=== PATIENT | male | born 1945 | race Caucasian/White ===

== ENCOUNTER 2020-09-02 05:16 | Observation (INO) ==
--- NOTE | 2020-07-23 15:01 | PAT Medication Instructions ---
Medication Instructions Date of Service July 23, 2020 Home Medications amino ac-vit [id number] [Prostate Formula] 1 tab PO QAM ascorbic acid (vitamin C) [Vitamin C] 1 g PO QAM vitamin B complex 1 tab PO QAM STOP taking 2 weeks before surgery (or as soon as possible if surgery is within 2 weeks) amino ac-vit [id number] [Prostate Formula] 1 tab PO QAM Take morning of surgery With a small sip of water, OTHERWISE NOTHING TO EAT OR DRINK AFTER MIDNIGHT: ascorbic acid (vitamin C) [Vitamin C] 1 g PO QAM vitamin B complex 1 tab PO QAM Other Notes If you have any questions please call us at [phone] or [phone] or [phone] or [phone]
--- NOTE | 2020-08-04 11:35 | Anesthesiology Consultation ---
Date of Service August 04, 2020 Assessment & Plan (1) Encounter for pre-operative examination: Chart Review Chart Review: Acceptable Risk for Surgery (pending preop Covid testing results ) and Patient seen in Pre Admission Testing Per PAT appt on 08/04/20, pt traveled to [place] to help daughter move (07/13/20), then to [place] 07/14/20. Does NOT wear mask. No known Covid positive contacts or Covid related symptoms. Pt denies known Covid infection in the past 90 days. Preop Covid testing 08/31/20= will await results . Educated on importance of self quarantining, social distancing and wearing mask in public both for the patient and household contacts. Teaching & Discussion Pre-Anesthesia Teaching/Discussion Notes: Instructed NPO after midnight before surgery,except medications with 15 cc of water. Medication instructions provided according to the PAT guidelines. History Surgery Operation Date: 09/02/20 08:50 Proposed Procedures p Left Total Hip Arthroplasty - Deniz Slaughter MD Height/Weight Height: 5 ft 9 in Weight: 85.2 kg Allergies Allergy/AdvReac Type Severity Reaction Status Date / Time No Known Allergies Allergy Verified 07/23/20 13:37 Medications Home Medications Medication Instructions Recorded Confirmed Last Taken amino ac-vit [id number]-[id number] 1 tab PO QAM 07/23/20 07/23/20 Unknown [Prostate Formula] ascorbic acid (vitamin C) [Vitamin 1 g PO QAM 07/23/20 07/23/20 Unknown C] vitamin B complex 1 tab PO QAM 07/23/20 07/23/20 Unknown Past Medical History Medical History Arthritis of left hip BPH (benign prostatic hyperplasia) Hyperlipidemia under surveillance Exercise / Class Metabolic Activity II 4-5 Yardwork/Stairs/Walk up hill (one flight of stairs - no chest pain or SOB ) Past Family History Family History Other No family history of adverse response to anesthesia Past Surgical History Surgical History History of colonoscopy History of total knee replacement R/L Past Anesthesia History No Hx of Anesthesia Complications and No Family Hx of Anesthesia Complications History of PONV No Hx of PONV and No Hx of Motion Sickness Social History Smoking Status: Never smoker Do You Dip or Chew Tobacco: No Hx Alcohol Use: No Hx Substance Use: No Review of Systems Occ snoring - no witnessed apnea- no hx of sleep study Patient denies chest pain, shortness of breath, dyspnea on exertion, reflux, cough, wheezing, palpitations. No hx of seizures, stroke, MA. No hx of blood clots or blood transfusions Physical Exam Vital Signs VITALS BP 148/87 P 61 TEMP 98.4 SP02 96% RESP 16 Constitutional no acute distress ENMT Mouth: no TMJ clicking Thyromental Distance: > or= 3.5 Finger Breadths (4.0) Mallampati Class: II Missing molars Neck + facial hair (long rojo- only on lower chin- no significant facial hair around mouth ); neck extension not limited Respiratory normal respiratory effort; no respiratory distress Auscultation: lungs clear to auscultation bilaterally; no wheezes Cardiovascular Rate/Rhythm: regular rate and regular rhythm Heart Sounds: no murmur Vessels: no carotid bruit Musculoskeletal Spine: no pain with cervical ROM Extremities: extremities normal to inspection Psychiatric Orientation: alert Lab Results Anesthesia Preop Results Results Anesthesia Widget: WBC 4.83 K/uL (4.8-10.8) 08/04/20 Hgb 13.7 g/dL (14.0-18.0) L 08/04/20 Hct 40.5 % (42-52) L 08/04/20 Plt 214 K/uL (130-400) 08/04/20 Na 141 mmol/L (136-145) 08/04/20 K 4.6 mmol/L (3.5-5.1) 08/04/20 Cl 109 mmol/L (98-107) H 08/04/20 CO2 27 mmol/L (21-32) 08/04/20 BUN 20 mg/dl (7-18) H 08/04/20 Creat 0.86 mg/dl (0.6-1.4) 08/04/20 Glucose Level 82 mg/dl (70-99) 08/04/20 PT 10.3 Seconds (9.0-12.0) 08/04/20 PTT 28.3 Seconds (21.0-31.0) 08/04/20 INR 1.0 (0.9-1.1) 08/04/20 Blood Type A Positive 08/04/20 Antibody Screen NEGATIVE 08/04/20 Testing Electrocardiogram Date: 08/04/20 Findings: + SB @ (57bpm) Minimal voltage criteria for LVH, may be normal variant . U-wave present, rule out electrolyte abnormality (electrolytes WNL on 08/04/20 preop labs) Chest X-Ray Date: 08/03/20 Findings: + NAD The heart remains mildly enlarged. There is stable aortic tortuosity/ectasia. There is no failure. There is no lobar consolidation. There is mild chronic basilar interstitial thickening. IMPRESSION: Stable aortic tortuosity/ectasia. No change from the prior study. No acute findings.
--- NOTE | 2020-08-04 11:43 | PAT Medication Instructions ---
Medication Instructions Date of Service August 04, 2020 Home Medications amino ac-vit [id number]-hb9 [Prostate Formula] 1 tab PO QAM ascorbic acid (vitamin C) [Vitamin C] 1 g PO QAM vitamin B complex 1 tab PO QAM STOP taking 2 weeks before surgery amino ac-vit P-[id number]-[id number]-hb9 [Prostate Formula] 1 tab PO QAM DO NOT take the morning of surgery ascorbic acid (vitamin C) [Vitamin C] 1 g PO QAM vitamin B complex 1 tab PO QAM OTHERWISE NOTHING TO EAT OR DRINK AFTER MIDNIGHT Other Notes If you have any questions please call us at [phone] or [phone] or [phone] or [phone]
--- NOTE | 2020-08-26 11:06 | History and Physical Report ---
DATE OF ADMISSION: 09/02/2020. CHIEF COMPLAINT: Left hip pain. HISTORY OF PRESENT ILLNESS: The patient is a 74-year-old male, an Muslim gentleman who presents for s urgical treatment of his left hip. He has a several year history of gradually progressive increased left hip pain and discomfort that has gotten gradually worse over time. He describes groin pain, thi gh pain, lateral hip pain radiates down to his knee, but no further. It is bothering him for years a nd getting worse. He limps all the time. He limps more as the day goes on. He takes medicine with minimal relief. I would like to have his left hip fixed. He has been seeking chiropractic treatment , which has not helped him. Of note, the patient has a history of bilateral knee replacements done by Dr. Bradley in [place] ; the left arm done 10-11 years ago on the right one 2-3 years ago. Knees are doing okay. He has a little bit of pain in his left knee. PAST MEDICAL HISTORY: Noncontributory. PAST SURGICAL HISTORY: Include bilateral knee replacements, left one done 10-11 years ago a right on e 2-3 years ago. ALLERGIES: None. MEDICATIONS: None. SOCIAL HISTORY: A 74-year-old male. Lives in [place]. He is . Does not smoke. FAMILY HISTORY: Noncontributory. REVIEW OF SYSTEMS: Negative for diabetes, neurologic problems, vascular problems or bleeding disorde rs. No chest pain or shortness of breath. No history of DVT or PE. No known bleeding problems. PHYSICAL EXAMINATION: GENERAL: This is a pleasant 74-year-old gentleman. He looks to be in good health. HEENT: Benign. NECK: Supple. No lymphadenopathy. LUNGS: Clear to auscultation. HEART: Regular rate and rhythm. ABDOMEN: Soft, nontender, nondistended. EXTREMITIES: Grossly neurovascularly intact except as follows: Examination of the left hip reveals the patient walks with a significant limp, he is about 0.5 [address] on the left side compared to the opposite side. He has got a well-healed knee incision on that si de with no knee effusion. His hip is quite stiff with internal rotation and neutral, which recreates his pain. Negative straight leg raise. He is neurologically intact. X-RAYS: X-ray of the left hip were reviewed. He has advanced left hip DJD. He got complete loss of the superior joint space. He has got cystic change in the femoral head and acetabulum and flattenin g of the femoral head. His right hip looks pretty normal. ASSESSMENT: A 74-year-old Muslim gentleman with history of bilateral knee replacements in the past wi th advanced left hip degenerative joint disease. He has failed conservative treatment. I think it i s possible that this is really creating some of his knee pain as well. PLAN: We are going to proceed with a left total hip replacement. The risks and benefits of this pro cedure were explained to the patient include but not limited to DVT, PE, , infection, neurologic al injury, vascular injury, bleeding problem pain, limited range of motion, stiffness, failure to rel ieve symptoms, incomplete relief of symptoms, need for further surgery in future, fracture, leg lengt h inequality, nerve palsy dislocation, etc. The patient understands and desires to proceed. Informe d consent was obtained. The patient is planning to be discharged to home on possible use of home health as needed. Job ID: [id number]
[2020-09-02] MEDS ORDERED: ceFAZolin 2000MG 2,000 MG/15 ML SYR IV SCH (06:00)
[2020-09-02] MEDS ORDERED: TRANEXAMIC ACID 1,000 MG **IV Pre-op IV SCH (06:00)
[2020-09-02] MEDS ORDERED: GABAPENTIN 300 MG CAP PO SCH (06:00)
[2020-09-02] MEDS ORDERED: ACETAMINOPHEN 500 MG TAB PO SCH (06:00)
[2020-09-02] MEDS ORDERED: LR 60ML/HR IV SCH (06:00)
[2020-09-02] MEDS ORDERED: FAMOTIDINE 20 MG TAB PO SCH (06:00)
[2020-09-02] MEDS ORDERED: METOCLOPRAMIDE HCL 10 MG TABLET PO SCH (06:00)
[2020-09-02] MEDS ORDERED: LR 500ML BOLUS, THEN 15ML/HR IV SCH (06:00)
[2020-09-02] MEDS ORDERED: MIDAZOLAM HCL 1 MG/ML 2ML VIAL ONE (06:19)
[2020-09-02] MEDS ORDERED: fentaNYL citrate 100 MCG/2 ML VIAL ONE (06:19)
[2020-09-02] MEDS ORDERED: MoRPHine SULFATE PF 1 MG/ML 10 ML AMP/VIAL ONE (06:20)
[2020-09-02] MEDS ORDERED: BUPIVACAINE 0.5 % 5 MG/1 ML PF 10ML VIAL ONE (06:24)
[2020-09-02] MEDS ORDERED: BUPIVACAINE/EPINEPHRINE 0.5% MPF 1:200,000 30 ML VIAL ONE (06:35)
--- NOTE | 2020-09-02 06:48 | History & Physical Bridge Note ---
Date of Service September 02, 2020 History & Physical Bridge Note I have examined the patient, reviewed the History & Physical and in the interval since the performance of the History & Physical I have noted the following changes of clinical significance: no changes noted
[2020-09-02] MEDS ORDERED: NALOXONE HCL 0.4 MG/1 ML VIAL/CARP IV PRN ×2 (06:54→09:54)
[2020-09-02] MEDS ORDERED: diphenhydrAMINE 50 MG/ML VIAL IV PRN (06:54)
[2020-09-02] MEDS ORDERED: ONDANSETRON INJ 2 MG/ML 2 ML VIAL IV PRN (06:54)
[2020-09-02] MEDS ORDERED: NALOXONE HCL 0.08 MG in SYRINGE 1.8 ML IV PRN (06:54)
[2020-09-02] MEDS ORDERED: MoRPHine SULFATE PF 1 MG/ML 10 ML AMP/VIAL INT SPINAL ONE (06:54)
[2020-09-02] MEDS ORDERED: NALOXONE HCL 1 MG in SODIUM CHLORIDE 0.9% 1000ML 1,000 ML IV PRN (06:54)
[2020-09-02] MEDS ORDERED: MEPERIDINE HCL 25 MG/ML CARP/VIAL IV PRN (06:54)
[2020-09-02] MEDS ORDERED: LACTATED RINGER'S 500 ML IV PRN (06:54)
[2020-09-02] MEDS ORDERED: ePHEDrine sulfate 50 MG/ML AMP IV PRN (06:54)
[2020-09-02] MEDS ORDERED: NO NARCOTICS OR SEDATIVES SCH (07:00)
[2020-09-02] MEDS ORDERED: DC INTRASPINAL MORPHINE SCH (07:00)
[2020-09-02] MEDS ORDERED: SODIUM CHLORIDE 0.9% 1000ML 1,000 ML IV SCH (07:00)
[2020-09-02] MEDS ORDERED: PROPOFOL IV EMULSION 10 MG/ML 20 ML VIAL IV ONE (07:10)
[2020-09-02] MEDS ORDERED: ePHEDrine sulfate 50 MG/ML AMP ONE (07:28)
--- NOTE | 2020-09-02 08:55 | Operative Report ---
Post Operative Report Pre & Post Diagnosis Operation Date: 09/02/20 07:00 Pre-Op Diagnosis: Left Hip Advanced Degenerative Joint Disease Post-Op Diagnosis: Left Hip Advanced Degenerative Joint Disease I identified the patient and participated in the time-out.: Yes Procedure Operation Date: 09/02/20 07:00 Actual Procedures p Left Total Hip Arthroplasty--Uncemented(Left) - Deniz Slaughter MD Surgeon Deniz Slaughter MD Auto Detailer Nickolas Mendoza PA-C Estimated Blood Loss 200 Findings Consistent with Post-Op Diagnosis Operative findings revealed advanced left hip DJD. 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 He had osteophytes particular around the anterior acetabulum. Fluids 1000 cc Specimens Left femoral head sent for pathology Drains None Anesthesia Type Spinal MAC Complications none Disposition Accompanied Patient To Recovery: Yes Disposition: Recovery Room Indications Patient is a 74-year-old very active gentleman has had a several year history of increased left hip pain discomfort became less responsive conservative over care appears well affecting his quality life. He is failed all conservative measures. X-rays show advanced left hip DJD. Elected proceed with surgical treatment. Description of Procedure Operative implants consist of: 1 Biomet G7 size 60 mm acetabular shell. 2. 6.5 cancellous acetabular screws 1 of 35 mm length 125 mm length. 3. Gillett hole sap analyst. 4. Highly cross-linked polyethylene liner with a 60 mm outer diameter, 40 mm time with a johnston placed inferior and posterior 5. Mervin Corail size 13 KLA femoral stem. 6. +8.5/40 mm ceramic articular ball. The patient was taken to the operating room, identified, placed on the operating table supine position but all contractors were properly padded. IV antibiotics tried by anesthesia team. Spinal anesthetic had been implemented holding area. Marin catheter was placed in sterile fashion. Patient was then placed in the right lateral decubitus position. An axillary roll was placed. Stulberg hip positioner was used for positioning. Left hip and leg were then prepped and draped in usual sterile fashion. A posterior lateral approach to the left hip was then performed through a curvilinear incision centered over the greater trochanter. Sharp dissection got through subcutaneous this down to level the IT band gluteal fascia the IT band gluteal fascia incised longitudinally in line with skin incision. The underlying greater trochanteric bursa was excised. The piriformis and external rotators were tagged and taken off the posterior aspect hip joint capsule. Great care was taken throughout the procedure protect the sciatic nerve at all times. Posterior capsulotomy was then performed leaving a large flap for later repair. Hip was internally rotated and dislocated. A femoral neck osteotomy cut was made with Final Cut about 10 mm above the lesser trochanter. Femoral head was removed and sent for pathology. The femur was retracted anteriorly. Attention drawn the acetabulum. The acetabular labrum was excised. The pulmonary fat was excised. Sequential reaming the acetabular was then performed again with a size 47 and progressing up to 59. I did reamed a little bit with a 60 reamer and then placed a 60 mm Biomet G7 acetabular shell in about 40 degrees lateral opening and 20 degrees of anteversion. Was fixed with two 6.5 cancellous acetabular screws. Trial liner was placed. Some anterior osteophytes were removed. Attention then drawn to the femur. Proximal femur was entered with a cookie-cutter followed by canal finder. Broached begin the size 8 and progressing up to 13. Excellent fit at 13. I then trialed the hip and I thought the +8.5 articular ball restored leg lengths appropriately and was fully stable full extension and external rotation flexion to 90 degrees and internal rotation to 50 degrees. I did elect to place a johnston inferior and posterior to maximize his stability in flexion. Ultram trial implants were removed. An apex hole sap analyst was placed. Highly cross-linked polyethylene liner with a johnston placed inferior and posterior was impacted in position. A DePuy size 13 KLA femoral stem was impacted in position. +8.5/36 mm ceramic articular ball was placed. Hip was located once again found to be stable. Attention drawn toward closing. The wound was irrigated with copious pulsatile lavage solution. I did inject locally with 60 cc of half percent Marcaine with epinephrine. The posterior capsule and external rotators then repaired through drill holes in the posterior trochanter with #2 Tycron suture. The IT band gluteal fascia then closed in 1 PDS suture running fashion for subcutaneous tissue then closed with 2 layers with a deep layer #1 Vicryl suture subcutaneous tissues with 2-0 Dexon suture in a buried interrupted fashion the skin was closed skin adrián. Leg was then cleaned and dried a sterile dressing was Xeroform, 4 x 4's, ABD pad, foam tape was applied. Patient transferred to the recovery room in stable condition. The patient tolerated the procedure well and there were no complications. Nickolas Mendoza, my physician obstetric assistant, was present for the entire procedure. His assistance was required for proper patient positioning, prepping and draping, surgical exposure, retraction, perform the technical details the operation, closure of the wound, and placement of the sterile bandage. I attest to the content of the Intraoperative Record and any orders documented therein. Any exceptions are noted below.
--- NOTE | 2020-09-02 09:29 | Anesthesiology Progress Note ---
Date of Service September 02, 2020 Anesthesia Post Procedure Vital Signs Vital Signs: Temp Pulse Pulse Resp BP Pulse Ox 09/02/20 09:20 97.9 F 67 10 L 137/95 95 09/02/20 09:10 69 14 135/90 98 09/02/20 09:00 69 12 131/85 99 09/02/20 08:50 75 17 137/76 100 09/02/20 08:44 97.2 F L 76 14 117/77 94 09/02/20 05:44 98.2 F 55 L 18 145/97 H 96 Transfer of Care Handoff Completed per policy Notes Mental Status: alert / awake / arousable and participated in evaluation Patient Amnestic to Procedure: Yes Nausea / Vomiting: adequately controlled Pain: adequately controlled Airway Patency, RR, SpO2: stable & adequate BP & HR: stable & adequate Hydration State: stable & adequate Neuraxial Anesthesia: was administered and sensory block is resolving Anesthetic Complications: no major complications apparent and Pt Satisfied with anesthetic care
--- NOTE | 2020-09-02 09:53 | XRay Report ---
XR hip 1V LT w pelvis CLINICAL HISTORY: IN PACU - A/P PELVIS and LATERAL HIP COMPARISON: None. DISCUSSION: Prosthetic left hip joint is seen. Linear areas of gas collection are seen within soft tissue surroun ding left hip. Skin adrián are demonstrated. Osseous structures are diffusely demineralized. IMPRESSION: Postoperative changes as detailed above. ACT 112: Negative or not required by law. The above report was generated using voice recognition software. It may contain grammatical, syntax o r spelling errors. Electronically signed by: Nivia Posadas DO 09/02/2020 9:51 AM
[2020-09-02] MEDS ORDERED: ALUMINUM/MAGNESIUM SUSP 30 ML UDC PO PRN (09:54)
[2020-09-02] MEDS ORDERED: TAMSULOSIN HCL 0.4 MG CAP PO PRN (09:54)
[2020-09-02] MEDS ORDERED: AMINO AC VIT E ZN PROSTATE HB9 PO SCH (09:54)
[2020-09-02] MEDS ORDERED: MAGNESIUM HYDROXIDE SUSP 30 ML UDC PO PRN (09:54)
[2020-09-02] MEDS ORDERED: bisacodyL 10 MG SUPP PR PRN (09:54)
[2020-09-02] MEDS: SODIUM CHLORIDE 0.9% 1000ML 1,000 ML IV SCH ×2 (10:26→22:32)
[2020-09-02] MEDS: ASPIRIN 81 MG ECTAB PO SCH ×2 (10:33→22:36)
[2020-09-02] MEDS: VITAMIN B COMPLEX TAB PO SCH (10:34)
[2020-09-02] MEDS: DOCUSATE SODIUM 100 MG CAP PO SCH ×2 (10:34→22:34)
[2020-09-02] MEDS: MULTIVITAMIN TAB PO SCH (10:34)
[2020-09-02] MEDS: KETOROLAC TROMETHAMINE 15 MG/ML VIAL IV SCH ×3 (11:59→23:36)
[2020-09-02] MEDS: ceFAZolin 2000MG 2,000 MG/15 ML SYR IV SCH ×2 (13:54→22:38)
[2020-09-02] MEDS: ACETAMINOPHEN 500 MG TAB PO SCH ×2 (14:59→22:35)
[2020-09-02] MEDS ORDERED: TRANEXAMIC ACID / 0.7% NACL 1,000 MG/100 ML BAG IV SCH (15:00)
[2020-09-02] MEDS ORDERED: ASCORBIC ACID 500 MG TAB PO SCH (17:00)
[2020-09-02] MEDS ORDERED: SENNA 8.6 MG TAB PO SCH (21:00)
[2020-09-03] MEDS ORDERED: HYDROmorphone INJ 0.5 MG/0.5 ML SYR IV PRN (00:54)
[2020-09-03] MEDS ORDERED: METOCLOPRAMIDE HCL INJ 5 MG/ML 2 ML VIAL IV PRN (00:54)
[2020-09-03] MEDS ORDERED: traMADol HCL 50 MG TABLET PO PRN (00:54)
[2020-09-03] MEDS ORDERED: ONDANSETRON INJ 2 MG/ML 2 ML VIAL IV PRN (00:54)
[2020-09-03 06:09] LABS: Basophils # (auto) 0.03 K/uL (0-0.2); Basophils % (auto) 0.4 %; Eosinophils # (auto) 0.31 K/uL (0-0.5); Hematocrit (blood only) 36.6 % (42-52); Hemoglobin 12.2 g/dL (14.0-18.0); Immature Granulocytes # (auto) 0.02 K/uL (0.00-0.02); Immature Granulocytes % (auto) 0.3 %; Lymphocytes # (auto) 0.79 K/uL (1.2-3.4); Lymphocytes % (auto) 10.1 %; Mean Corpuscular Hgb Conc 33.3 g/dL (32-36); Mean Corpuscular Volume 86.9 fL (80-100); Mean Platelet Volume 9.2 fL (7.4-10.4); Monocytes # (auto) 0.66 K/uL (0.11-0.59); Monocytes % (auto) 8.5 %; Neutrophils % (auto) 76.7 %; Platelet Count 152 K/uL (130-400); RDW Coefficient of Variation 14.5 % (11.5-14.5); Red Blood Count 4.21 M/uL (4.7-6.1); White Blood Count 7.81 K/uL (4.8-10.8)
[2020-09-03] MEDS: SODIUM CHLORIDE 0.9% 1000ML 1,000 ML IV SCH (06:12)
[2020-09-03] MEDS: KETOROLAC TROMETHAMINE 15 MG/ML VIAL IV SCH ×2 (06:16→11:13)
[2020-09-03] MEDS: ACETAMINOPHEN 500 MG TAB PO SCH ×2 (06:16→14:18)
[2020-09-03 06:35] LABS: Calcium 8.1 mg/dl (8.5-10.1); Creatinine Clr Calc Pharmacy 70.1 ml/min; Est GFR (African American) 83.7 ml/min; Est GFR (Non-African American) 72.2 ml/min; Potassium 4.2 mmol/L (3.5-5.1)
[2020-09-03] MEDS ORDERED: dexAMETHasone 10 MG in SYRINGE 0 ML IV SCH (08:00)
--- NOTE | 2020-09-03 08:19 | Progress Notes ---
DATE OF SERVICE: 09/03/2020. SUBJECTIVE: A 74-year-old gentleman postop day #1 from a left hip replacement. He is doing well. D enies any significant pain. No chest pain or shortness of breath. Not feeling dizzy or lightheaded. OBJECTIVE: VITAL SIGNS: Temperature 36.8. Vital signs stable. GENERAL: Physical examination shows a pleasant middle-aged male. He is lying in bed, looks comforta ble this morning. LUNGS: Clear to auscultation. HEART: Regular rate and rhythm. ABDOMEN: Soft, nontender, nondistended. EXTREMITIES: Grossly neurovascularly intact except as follows. Examination of the left leg reveals the dressing to be clean, dry and intact. Thigh is soft and supple. Hip is located. Leg lengths ar e equal. NEUROLOGIC: He is neurologically intact. LABORATORY DATA: Hemoglobin 12.2. Hematocrit 36.6. Electrolytes are stable. ASSESSMENT: A 74-year-old gentleman postop day #1 from a left hip replacement, doing well. His pain is controlled. Hip is located. He is neurologically intact. PLAN: 1. DVT prophylaxis include thigh-high TEDs, SCDs, and aspirin twice a day. 2. PT, OT, weightbear as tolerated. Left total hip protocol. 3. Pain control, doing well with current pain regimen. 4. Disposition: Plan to discharge to home with some home health if he does okay in therapy today. Job ID: [id number]
[2020-09-03] MEDS ORDERED: ASCORBIC ACID 500 MG TAB PO SCH (09:00)
[2020-09-03] MEDS: ASPIRIN 81 MG ECTAB PO SCH (09:32)
[2020-09-03] MEDS: MULTIVITAMIN TAB PO SCH (09:32)
[2020-09-03] MEDS: VITAMIN B COMPLEX TAB PO SCH (09:32)
[2020-09-03] MEDS: DOCUSATE SODIUM 100 MG CAP PO SCH (09:32)
--- NOTE | 2020-09-10 14:01 | Discharge Summary ---
Date of Service September 10, 2020 Admission HPI (Per Admitting) Well documented in patient's chart Principal Diagnosis Left total hip arthroplasty Discharge Data Procedures Performed Operation Date: 09/02/20 07:00 Actual Procedures p Left Total Hip Arthroplasty--Uncemented(Left) - Deniz Slaughter MD Hospital Course (1) History of total left hip arthroplasty: Patient presented to [facility] on 09/02/2020 for left total hip arthroplasty. Patient tolerated the procedure well without complication. He was then sent to the PACU for initial postoperative care. She was then transferred to the medical floors for further evaluation. On postop day 1, patient's pain was mostly well controlled. He was ambulating with a walker and performing some stretching/strengthening exercises with physical therapy. He was then discharged home. For DVT prophylaxis he will use TEDs and aspirin daily. He was instructed to follow his hip precautions and will remain weightbearing as tolerated. He may continue Tylenol and tramadol for additional pain relief. He will follow-up in 2 weeks postoperatively for evaluation and staple removal at that time. PG Care Time/CCT Total # of Minutes Spent Total Time Spent with Patient: Total time spent is greater than 50% in coordination of care (as documented) at patient's floor/unit and/or counseling patient: Discharge Plan Discharge Items Patient Disposition: Home - Home Health Services Reason For Visit: Left Hip Osteoarthritis Discharge Diagnosis: Left Hip Replacement Activity: Per Instructions section Activity Comment: Follow/Obey hip precautions at all times. Weightbearing: Full weightbearing Weightbearing Comment: Weightbear as tolerated following hip precautions Non-emergency contact: Surgeon Call non-emergency contact if: you have any medication questions Follow-up/Referrals: PCP,NO [Primary Care Provider] - Diet: Regular Addtl Attending Provider Instructions: ACTIVITY RECOMMENDATIONS: Physical Therapy: * Aggressive physical therapy is not usually needed. You will learn to take care of yourself safely and walk. * Follow the "Hip Precautions Instructions." * In some cases, the social studies department chair at the hospital will arrange to have a therapist come to your house for the first couple of weeks to help you learn these skills. * You need to practice on your own or with the help of a family member as needed. * When you learn these skills, most of the therapy can be done on your own. Home Exercise: * You were shown a series of exercises in the hospital. Do these exercises three to four times each day including the exercises you were shown in physical therapy. Walking: * Get up and walk several times each day. For the first four weeks, try not to stand or walk for more than one hour at a time. If you do stand or walk for more than one hour, you will not hurt anything, but your leg will likely swell. * As you feel comfortable, you may change from the walker or crutches to a cane and then to independent walking. MEDICATIONS: New Medicine: * You will likely be taking one or more of these medicines: 1. Tramadol - Take, as directed, when you need it, every six hours to control your pain. 2. Aspirin - Thins your blood to lessen the chance of forming a blood clot. * The most common side effects of pain medicine and iron are nausea and constipation. If nausea or constipation is too much of a problem or if you have any questions about your new medicines or doses, call [facility] at . We will try to help you manage these issues. "VERY IMPORTANT TO READ AND REVIEW" Pain: * The immediate post-operative period after hip replacement surgery is often quite painful. * You are given a prescription for pain medicine. You should take it, as directed, when you need it, especially before physical therapy and before going to bed. Pain that interferes with sleep is very common and can last several months. * You will likely need pain medicine for the first two to four weeks. It will not stop all of the pain. The pain will lessen and as you feel better, you may change to milder pain medicine such as Tylenol. * The most common side effects of pain medicine are nausea and constipation, so don't take more than you need. SPECIAL CARE INSTRUCTIONS: TEDs/Elastic Stockings: * The white elastic stockings help limit swelling and prevent blood clots from forming in your legs. The more you wear them, the more they work. * Wear them for six weeks. Prevention of Infection: * Take antibiotics one hour before any dental cleaning, dental work, urological procedure, gastrointestinal procedure or any invasive surgery in order to prevent your new joint from getting infected. * You may get the antibiotics from the doctor performing the procedure or you may call our office at before and we will call in a prescription to the pharmacy of your choice. Things to Watch For: * Drainage from the incision site that occurs more than one week after your surgery. * Severely increased leg pain or swelling. * Increased redness at the incision site. * Fever above 102 degrees Fahrenheit. * Unusual chest pain or shortness of breath. * Unusual pain or burning with urination. Call [facility] at with any of the above problems or if you have any questions about your medicines or recovery. FOLLOW UP VISIT: Make an appointment to see your doctor for approximately two weeks after surgery for a progress check and staple removal by calling the office at . Pending Studies at Discharge: No Stand-Alone Forms: My [facility] [employer], Smoking Cessation Medications and DC Order Prescriptions: New acetaminophen 500 mg Tablet 1,000 mg PO Q8 30 Days Qty: 180 RF: 0 aspirin 81 mg Tablet,Delayed Release (Dr/Ec) 81 mg PO BID 45 Days Qty: 90 RF: 0 tramadol 50 mg Tablet 50 - 100 mg PO Q6H PRN (Reason: pain) Qty: 30 RF: 0 Continued ascorbic acid (vitamin C) [Vitamin C] 1,000 mg Tablet 1 g PO QAM RF: 0 vitamin B complex Tablet 1 tab PO QAM RF: 0 amino ac-vit [id number] Tablet 1 tab PO QAM RF: 0 Discharge Orders: Discharge Order (Routine); Ordered 09/03/20 Ordered By: Deniz Slaughter Admission Data Admit Date/Time: 09/02/20 08:47 Attending Provider: Deniz Slaughter Admit Provider: Deniz Slaughter Primary Care Provider: PCP,NO Other Providers: [facility],Home Health Other Interventions: Discharge Summary Assessment (RN) Last Done: 09/03/20 12:03
== END 2020-09-03 15:56 | disposition home health service (06) ==
LOC: 3E 05:16 → ASU 05:16
DX: Z96.653 Presence of artificial knee joint, bilateral; M16.12 Unilateral primary osteoarthritis, left hip